=== PATIENT | female | born 1990 | race Asian ===

== ENCOUNTER 2017-08-27 08:10 | Inpatient (IN) | payer SELFPAY ==
[~2017-08-27] VITALS: Ht 154 cm; Wt 47.6 kg
[2017-08-27] MEDS ORDERED: TERBUTALINE 1 MG/ML VIAL SUBQ SCH (08:50)
[2017-08-27] MEDS ORDERED: AMPICILLIN 2,000 MG VIAL ONE ×4 (08:54→20:35)
[2017-08-27] MEDS ORDERED: PREN-380 PO (08:54)
[2017-08-27] MEDS ORDERED: BETAMETH ACET/BETAMETH NA PH 30 MG/5 ML VIAL IM ONE ×2 (08:54→20:35)
[2017-08-27] MEDS ORDERED: TERBUTALINE 1 MG/ML VIAL SUBQ ONE (08:55)
[2017-08-27] MEDS: BETAMETH ACET/BETAMETH NA PH 30 MG/5 ML VIAL IM SCH ×2 (09:12→21:40)
[2017-08-27] MEDS: LACTATED RINGERS 1,000 ML IV SCH ×2 (09:13→17:24)
[2017-08-27] MEDS: AMPICILLIN 2,000 MG in NACL 0.9% 100 ML IV SCH ×3 (09:15→20:55)
[2017-08-27] MEDS ORDERED: NIFEdipine 10 MG CAPLF PO SCH (09:50)
[2017-08-27] MEDS ORDERED: NIFEdipine 10 MG CAPLF ONE ×2 (09:52→10:13)
[2017-08-27 10:30] VITALS: BP 137/103
[2017-08-27] MEDS ORDERED: MAG SULF 2000 MG/WATER PREMIX 100 ML IV SCH (10:48)
[2017-08-27 11:14] LABS: HEMATOCRIT 45.8 % (36-48); MEAN CORPUSCULAR HEMOGLOBIN 29 pg (27-31); MEAN CORPUSCULAR HGB CONC 33 g/dL (33-37); MEAN CORPUSCULAR VOLUME 89 fL (80-94); PLATELET COUNT (AUTO) 157 K/uL (140-450); RED BLOOD CELL COUNT(AUTO) 5.15 MIL/uL (4.20-5.40); RED CELL DISTRIBUTION WIDTH 14.6 % (11.6-13.7); WHITE BLOOD COUNT (AUTO) 20.7 K/uL (4.8-10.8)
[2017-08-27 11:14] LABS: APPEARANCE,URINE CLEAR (CLEAR); BILIRUBIN,URINE 2+ (NEGATIVE); BLOOD, URINE 3+ (NEGATIVE); COLOR,URINE YELLOW (YELLOW); LEUKOCYTE ESTERASE ,URINE NEGATIVE (NEGATIVE); NITRITE, URINE NEGATIVE (NEGATIVE); UGLUCOSE NEGATIVE (NEGATIVE)
[2017-08-27 11:43] LABS: LYMPHOCYTES % (MANUAL) 11 % (20-46); MONOCYTES % (MANUAL) 3 % (5-12)
[2017-08-27 11:51] LABS: RBC,URINE 3-10 (FEW) /HPF (0-5); WBC,URINE 0-5 (RARE) /HPF (0-5)
[2017-08-27 11:52] LABS: URINE AMORPHOUS URATE 1+ /HPF (None Seen)
[2017-08-27 11:56] LABS: ANION GAP 25.1 (8-16); CREATININE 1.6 mg/dL (0.6-1.3); POTASSIUM 4.1 mmol/L (3.5-5.1)
[2017-08-27 11:58] LABS: ALBUMIN 2.5 g/dL (3.4-5.0); TOTAL BILIRUBIN 8.3 mg/dL (0.0-1.0)
[2017-08-27] MEDS ORDERED: MAG SULF 20 GM/H2O PREMIX DRIP 500 ML IV ONE (12:04)
[2017-08-27] MEDS ORDERED: MAG SULF 2000 MG/WATER PREMIX 50 ML IV ONE (12:05)
[2017-08-27] MEDS ORDERED: MAG SULF 20 GM/H2O PREMIX DRIP 500 ML IV SCH (12:10)
[2017-08-27] MEDS ORDERED: ceFAZolin 2,000 MG in NACL 0.9% 100 ML IV ONE (12:55)
[2017-08-28] MEDS ORDERED: AMPICILLIN 2,000 MG VIAL ONE (02:28)
[2017-08-28] MEDS: LACTATED RINGERS 1,000 ML IV SCH ×2 (02:35→05:05)
[2017-08-28] MEDS: AMPICILLIN 2,000 MG in NACL 0.9% 100 ML IV SCH (02:35)
[2017-08-28] MEDS ORDERED: SEVOFLURANE 250 ML BTL INH ONE (07:30)
[2017-08-28] MEDS ORDERED: ONDANSETRON 4 MG/2 ML VIAL IVP ONE ×2 (07:30→13:38)
[2017-08-28] MEDS ORDERED: DEXAMETHASONE 4 MG/ML VIAL IVP ONE (07:30)
[2017-08-28] MEDS ORDERED: PROPOFOL 200 MG/20 ML VIAL IV ONE (07:30)
[2017-08-28] MEDS ORDERED: SIMETHICONE 80 MG TAB.CHEW PO PRN (07:40)
[2017-08-28] MEDS ORDERED: TRIMETHOBENZAMIDE 200 MG/2 ML SYR IM PRN (07:40)
[2017-08-28] MEDS ORDERED: MEASLES, MUMPS, AND RUBELLA 1 VIAL SQVAC PRN (07:40)
[2017-08-28] MEDS ORDERED: TEMAZEPAM 15 MG CAP PO PRN (07:40)
[2017-08-28] MEDS ORDERED: oxyCODONE/APAP 5/325 MG 1 TAB TAB PO PRN (07:40)
[2017-08-28] MEDS ORDERED: METHYLERGONOVINE 0.2 MG/ML AMP IM PRN (07:40)
[2017-08-28] MEDS ORDERED: TRIAMCINOLONE 40 MG/ML 5ML VIAL ONE (08:12)
[2017-08-28] MEDS ORDERED: OXYTOCIN 10 UNITS/ML VIAL ONE (08:12)
[2017-08-28] MEDS ORDERED: CITRIC ACID/SODIUM CITRATE 30 ML UDC PO SCH (08:39)
[2017-08-28] MEDS ORDERED: CITRIC ACID/SODIUM CITRATE 30 ML UDC ONE (08:43)
[2017-08-28] MEDS ORDERED: fentaNYL 0.05 MG/ML VIAL ONE (08:53)
[2017-08-28] MEDS ORDERED: MIDAZOLAM 2 MG/2 ML VIAL ONE (08:53)
[2017-08-28] MEDS ORDERED: KETAMINE 500 MG/5 ML VIAL ONE (08:54)
[2017-08-28] MEDS ORDERED: MORPHINE PRES FREE 10 MG/10 ML AMP IV ONE (08:54)
--- NOTE | 2017-08-28 09:01 | NUR ---
PATIENT HAS BEEN SCREENED AND CATEGORIZED LOW NUTRITION RISK. PATIENT WILL BE SEEN WITHIN 7 DAYS OF ADMISSION. 09/02/[address]
[2017-08-28] MEDS ORDERED: ONDANSETRON 4 MG/2 ML VIAL IVP PRN (09:30)
[2017-08-28] MEDS ORDERED: diphenhydrAMINE 50 MG/ML VIAL IVP PRN (09:30)
[2017-08-28] MEDS ORDERED: ePHEDrine 50 MG/ML VIAL IV ONE (13:38)
[2017-08-28] MEDS ORDERED: OXYTOCIN 10 UNITS/ML VIAL IM ONE (13:38)
[2017-08-28] MEDS: OXYTOCIN 20 UNITS in LACTATED RINGERS 1,000 ML IV SCH ×2 (14:50→19:05)
[2017-08-28] MEDS: DOCUSATE SOD/SENNA 50/8.6 MG 1 TAB PO SCH (21:21)
[2017-08-28] MEDS ORDERED: guaiFENesin 20 MG/ML UDC PO PRN (21:40)
[2017-08-29] MEDS: KETOROLAC 30 MG/ML VIAL IVP PRN ×2 (01:12→06:59)
[2017-08-29] MEDS ORDERED: OXYTOCIN 10 UNITS/ML VIAL ONE (03:15)
[2017-08-29 06:21] LABS: HEMOGLOBIN 9.6 g/dL (12.0-16.0); MEAN CORPUSCULAR HEMOGLOBIN 30 pg (27-31); MEAN CORPUSCULAR HGB CONC 34 g/dL (33-37); MEAN CORPUSCULAR VOLUME 88 fL (80-94); PLATELET COUNT (AUTO) 123 K/uL (140-450); RED BLOOD CELL COUNT(AUTO) 3.18 MIL/uL (4.20-5.40); RED CELL DISTRIBUTION WIDTH 15.4 % (11.6-13.7); WHITE BLOOD COUNT (AUTO) 29.1 K/uL (4.8-10.8)
[2017-08-29 06:47] LABS: LYMPHOCYTES % (MANUAL) 15 % (20-46); MONOCYTES % (MANUAL) 7 % (5-12)
[2017-08-29] MEDS: DOCUSATE SOD/SENNA 50/8.6 MG 1 TAB PO SCH (20:54)
[2017-08-30] MEDS ORDERED: LABETALOL 100 MG TAB PO SCH (12:00)
[2017-08-30] MEDS: LABETALOL 100 MG TAB PO SCH (21:33)
[2017-08-30] MEDS: IBUPROFEN 800 MG TAB PO PRN (21:50)
[2017-08-30] MEDS: DOCUSATE SOD/SENNA 50/8.6 MG 1 TAB PO SCH (21:54)
[2017-08-31] MEDS: LABETALOL 100 MG TAB PO SCH (08:33)
[2017-08-31] MEDS: IBUPROFEN 800 MG TAB PO PRN (08:34)
[2017-08-31] MEDS ORDERED: FUROSEMIDE 20 MG TAB PO SCH ×2 (09:25→14:00)
[2017-08-31 13:44] LABS: CARBON DIOXIDE 23.3 mmol/L (21-32); POTASSIUM 5.3 mmol/L (3.5-5.1)
[2017-08-31 13:50] LABS: ALBUMIN 1.5 g/dL (3.4-5.0)
[2017-08-31 13:55] LABS: HEMATOCRIT 27.9 % (36-48); HEMOGLOBIN 9.7 g/dL (12.0-16.0); MEAN CORPUSCULAR HEMOGLOBIN 31 pg (27-31); MEAN CORPUSCULAR HGB CONC 35 g/dL (33-37); MEAN CORPUSCULAR VOLUME 88 fL (80-94); PLATELET COUNT (AUTO) 91 K/uL (140-450); RED BLOOD CELL COUNT(AUTO) 3.18 MIL/uL (4.20-5.40); RED CELL DISTRIBUTION WIDTH 16.4 % (11.6-13.7); WHITE BLOOD COUNT (AUTO) 19.6 K/uL (4.8-10.8)
[2017-08-31 14:15] LABS: TOTAL BILIRUBIN 9.6 mg/dL (0.0-1.0)
[2017-08-31 14:37] LABS: CORRECTED WHITE BLOOD COUNT 18.5 K/uL (4.5-11.0); LYMPHOCYTES % (MANUAL) 13 % (20-46); MONOCYTES % (MANUAL) 8 % (5-12)
[2017-08-31] MEDS ORDERED: AMPICILLIN 2,000 MG VIAL ONE ×2 (15:57→20:46)
[2017-08-31] MEDS ORDERED: AMPICILLIN 2,000 MG in NACL 0.9% 100 ML IV SCH (16:00)
[2017-08-31] MEDS: HYDROcodone/APAP 5/325 MG 1 TAB TAB PO PRN (19:08)
[2017-08-31] MEDS ORDERED: CLINDAMYCIN 900 MG/6 ML VIAL IV ONE (20:47)
[2017-08-31] MEDS ORDERED: CLINDAMYCIN 900 MG in DEXTROSE 5% 100 ML IV SCH (21:00)
[2017-09-01] MEDS: HYDROcodone/APAP 5/325 MG 1 TAB TAB PO PRN (08:44)
[2017-09-01] MEDS: LABETALOL 100 MG TAB PO SCH (09:24)
[2017-09-01 10:12] LABS: HEMATOCRIT 37.4 % (36-48); HEMOGLOBIN 13.1 g/dL (12.0-16.0); MEAN CORPUSCULAR HEMOGLOBIN 31 pg (27-31); MEAN CORPUSCULAR HGB CONC 35 g/dL (33-37); MEAN CORPUSCULAR VOLUME 88 fL (80-94); PLATELET COUNT (AUTO) 80 K/uL (140-450); RED BLOOD CELL COUNT(AUTO) 4.26 MIL/uL (4.20-5.40); RED CELL DISTRIBUTION WIDTH 15.3 % (11.6-13.7); WHITE BLOOD COUNT (AUTO) 20.7 K/uL (4.8-10.8)
[2017-09-01 10:37] LABS: BASOPHILS % (MANUAL) 0 % (0-2); CORRECTED WHITE BLOOD COUNT 19.2 K/uL (4.5-11.0); EOSINOPHILS % (MANUAL) 0 % (0-4); LYMPHOCYTES % (MANUAL) 14 % (20-46); MONOCYTES % (MANUAL) 12 % (5-12)
[2017-09-01 10:56] LABS: ANION GAP 10.7 (8-16); POTASSIUM 4.7 mmol/L (3.5-5.1)
[2017-09-01 10:58] LABS: ALBUMIN 1.5 g/dL (3.4-5.0); TOTAL BILIRUBIN 9.7 mg/dL (0.0-1.0)
== END 2017-09-01 16:40 | disposition home or self-care (01) | DRG 766 ==
LOC: MLD 08:10 → MFCC 08-28 10:47
PROVIDERS: ADMIT Obstetrics & Gynecology; ATTEND Obstetrics & Gynecology
PROC: 10907ZC Drainage of Amniotic Fluid, Therapeutic from Products of Conception, Via Natural or Artificial Opening (ICD-10-PCS; 2017-08-28)
PROC: 30233N1 Transfusion of Nonautologous Red Blood Cells into Peripheral Vein, Percutaneous Approach (ICD-10-PCS; 2017-08-28)
PROC: 10D00Z1 Extraction of Products of Conception, Low, Open Approach (ICD-10-PCS; principal; 2017-08-28 08:45)
DX: O60.14X0 Preterm labor third trimester with preterm delivery third trimester, not applicable or unspecified (principal); O67.9 Intrapartum hemorrhage, unspecified; Z37.0 Single live birth; Z3A.35 35 weeks gestation of pregnancy; O76 Abnormality in fetal heart rate and rhythm complicating labor and delivery
CPT/HCPCS: 36415; 51702; 76819; 80053; 81001; 83735; 85025; 86886; 86900; 86901; 86920; J0290; J0690; J0702; J1100; J1885; J2250; J2270; J2405; J2590; J2704; J3010; J3105; J3301; J3475; J3490; J7030; J7060; J7120; P9016; Q0092

== ENCOUNTER 2017-09-02 01:13 | Inpatient (IN) | payer SELFPAY ==
[~2017-09-02] VITALS: Ht 162.6 cm; Wt 44.9 kg
[~2017-09-02 01:13] MED LIST: PREN-380 PO
--- NOTE | 2017-09-02 01:13 | NUR ---
TO ER BED 10
[2017-09-02 01:15] VITALS: BP 147/86
--- NOTE | 2017-09-02 01:15 | NUR ---
26Y F BIB FAMILY C/O ABDOMEN SX. WOUND BLEEDING WITH CHEST PAIN. PT. S/P C/S ON 08/28/17. PT AAOX4. BREATHING UNLABORED AND EVEN. PT BEING EVALUATED BY ER MD DR MORALES AT BEDSIDE. PRESSURE DRESSING APPLIED AND BLEEDING CONTROLLED. PT VSS.
--- NOTE | 2017-09-02 01:15 | NUR ---
PT HAS ACTIVE BLEEDING FROM CSECTION INCISION, NO VAGINAL BLEEDING NOTED AT THIS TIME. PRESSURE BANDAGE APPLIED. VSS AT THIS TIME.
--- NOTE | 2017-09-02 01:15 | NUR ---
Patient being evaluated by physician at bedside.
--- NOTE | 2017-09-02 01:16 | NUR ---
PT CONNECTED TO MONITOR. VSS.
[2017-09-02] MEDS ORDERED: NACL 0.9% 1,000 ML IV ONE ×2 (01:20→02:20)
--- NOTE | 2017-09-02 01:20 | NUR ---
BLOOD DRAWN AT BEDSIDE AND GIVEN TO PHLEB BERNADETTE
[2017-09-02] MEDS ORDERED: LIDOCAINE/EPI 2% 1:100000 20 ML VIAL INJ ONE (01:25)
--- NOTE | 2017-09-02 01:30 | NUR ---
LIDOCAINE/EPI 2% PULLED FROM PYXIS AND PLACED BY BEDSIDE FOR ER MD DR MORALES TO ADMINISTER.
[2017-09-02 01:31] LABS: MEAN CORPUSCULAR HEMOGLOBIN 30 pg (27-31); MEAN CORPUSCULAR HGB CONC 33 g/dL (33-37); MEAN CORPUSCULAR VOLUME 90 fL (80-94); PLATELET COUNT (AUTO) 104 K/uL (140-450); RED BLOOD CELL COUNT(AUTO) 4.69 MIL/uL (4.20-5.40)
[2017-09-02 01:41] LABS: WHITE BLOOD COUNT (AUTO) 26.4 K/uL (4.8-10.8)
[2017-09-02 01:43] LABS: CORRECTED WHITE BLOOD COUNT 24.7 K/uL (4.5-11.0)
--- NOTE | 2017-09-02 01:45 | NUR ---
PT LEFT TO CT ACCOMPANIED BY PAINT BRUSH MAKER AND TOMMY, PT CONNECTE TO MONITOR
[2017-09-02 01:48] LABS: LYMPHOCYTES % (MANUAL) 10 % (20-46); MONOCYTES % (MANUAL) 2 % (5-12)
[2017-09-02 01:55] LABS: CARBON DIOXIDE 26.6 mmol/L (21-32); POTASSIUM 4.6 mmol/L (3.5-5.1)
[2017-09-02 01:59] LABS: PROTHROMBIN TIME 12.5 secs (10.8-13.4)
[2017-09-02 02:00] LABS: TOTAL BILIRUBIN 8.5 mg/dL (0.0-1.0)
--- NOTE | 2017-09-02 02:03 | NUR ---
PT RETURN FROM CT.
[2017-09-02 02:04] LABS: ALBUMIN 1.7 g/dL (3.4-5.0)
[2017-09-02 02:08] LABS: D-DIMER 2960 ng/ml (0-400)
--- NOTE | 2017-09-02 02:15 | NUR ---
SURGICAL INCISION FROM WOUNDS ARE APPROXIMATED, NO EVISCERATION OR DEHISANCE NOTED, ACTIVE BLEEDING FROM CSECTION SITE. BRUISING AROUND INCISION SITE AND LOWER ABD.
--- NOTE | 2017-09-02 02:20 | NUR ---
INITIAL PRESSURE DRESSING SATURATED, DRESSING CHANGED, ABD PADS AND GAUZE APPLIED W/ PRESSURE. WILL CONTINUE TO MONITOR.
--- NOTE | 2017-09-02 03:00 | NUR ---
DRESSING CHANGED AFTER SUTURE BY DR. MORALES, ABD PADS APPLIED W/ ABD BINDER.
[2017-09-02] MEDS ORDERED: MORPHINE SULFATE 4 MG/ML SYR IVP ONE (03:05)
[2017-09-02] MEDS ORDERED: ONDANSETRON 4 MG/2 ML VIAL IVP ONE (03:05)
--- NOTE | 2017-09-02 03:16 | NUR ---
PT AWAKE IN BED, WILL CONTINUE TO MONITOR, VSS AT THIS TIME.
--- NOTE | 2017-09-02 03:40 | NUR ---
RECEIVED PATIENT FROM ER. PATIENT A&OX4. PATIENT STATES PAIN 10/10, PATIENT MEDICATED PRIOR TO TRANSFER TO UNIT. WILL RE ASSESS. IV SITE ON LEFT HAND PATENT AND INTACT, IV SITE ON RIGHT A/C PATENT AND INTACT. PATIENT HAS ABDOMINAL BINDER IN PLACE, TWO [address], DRESSING HAS MINIMAL DRAINAGE. PATIENT HAS SCANT AMOUNT OF LOCHIA NOTED. AT BEDSIDE. NO SIGNS OR SYMPTOMS OF ACUTE DISTRESS NOTED. PATIENT AND ORIENTED TO UNIT. SAFETY MEASURES ENSURED. CALL LIGHT WITHIN REACH. WILL CONTINUE TO MONITOR.
--- NOTE | 2017-09-02 03:45 | NUR ---
Patient will be admitted to care of DR Rolo DURAN. Admited to TELE. Will go to room 112-B. Belongings list completed. Report to SHIN.
[2017-09-02 04:00] VITALS: BP 130/70
[2017-09-02] MEDS ORDERED: MORPHINE SULFATE 4 MG/ML SYR IVP PRN (04:15)
--- NOTE | 2017-09-02 06:28 | NUR ---
DR DURAN IN TO SEE PATIENT
--- NOTE | 2017-09-02 07:20 | NUR ---
RECEIVED PATIENT REPORT AT BEDSIDE FROM NIGHTSHIFT NURSE. PATIENT IS A MANDARIN SPEAKER BUT HAS HER AT BEDSIDE. IS ABLE TO HELP TRANSLATE. PATIENT IS DROWSY AT THIS TIME. RESPIRATIONS ARE EVEN AND UNLABORED. NO SIGNS OF RESPIRATORY DISTRESS AND DEPRESSION AT THIS TIME. PATIENT ABDOMINAL DRESSING IS IN TACT AND DRY. PATIENT HAS NS 0.9 RUNNING AT 100 ML/HR ON HER RIGHT AC. NO COMPLAINTS OF PAIN AT THIS TIME. UPDATED PATIENT'S BOARDS AND INSTRUCTED AND PATIENT TO CALL IF THEY NEED ANYTHING.
--- NOTE | 2017-09-02 07:34 | NUR ---
ENDORSED PLAN OF CARE TO AM RN. PATIENT IN STABLE CONDITION
[2017-09-02] MEDS ORDERED: AMPICILLIN 2,000 MG in NACL 0.9% 100 ML IV SCH (08:00)
--- NOTE | 2017-09-02 09:07 | NUR ---
PATIENT HAS BEEN SCREENED AND CATEGORIZED HIGH NUTRITION RISK. PATIENT WILL BE SEEN WITHIN 1-2 DAYS OF ADMISSION. 09/01/17-09/02/[address]
[2017-09-02 09:11] VITALS: BP 122/72
[2017-09-02] MEDS: CLINDAMYCIN 900 MG in DEXTROSE 5% 50 ML IV SCH ×2 (09:19→15:58)
[2017-09-02] MEDS: DOCUSATE SODIUM 100 MG GELCAP PO SCH ×2 (09:19→21:02)
--- NOTE | 2017-09-02 09:25 | NUR ---
PATIENT IS ASLEEP BUT AROUSABLE. IS STILL AT BEDSIDE. WILL CONTINUE TO MONITOR PATIENT.
[2017-09-02 10:54] LABS: HEMATOCRIT 29.7 % (36-48); HEMOGLOBIN 10.1 g/dL (12.0-16.0); MEAN CORPUSCULAR HEMOGLOBIN 30 pg (27-31); MEAN CORPUSCULAR HGB CONC 34 g/dL (33-37); MEAN CORPUSCULAR VOLUME 87 fL (80-94); PLATELET COUNT (AUTO) 109 K/uL (140-450); RED CELL DISTRIBUTION WIDTH 16.1 % (11.6-13.7); WHITE BLOOD COUNT (AUTO) 23.1 K/uL (4.8-10.8)
[2017-09-02 11:04] LABS: LYMPHOCYTES % (MANUAL) 11 % (20-46); MONOCYTES % (MANUAL) 3 % (5-12)
[2017-09-02 12:00] VITALS: BP 122/78
--- NOTE | 2017-09-02 12:50 | NUR ---
DR DURAN HERE TO CHECK ON PT. PT IS RESTING WITH SPOUSE AT BEDSIDE. NOTIFIED DR. DURAN OF THE HIGH WBC, NO AMPICILLIN PER PHARMACY, AND ASKED IF HE WANTED DR. SILVA CONSULT. PER MD, NOT NECESSARY FOR DR. SILVA CONSULT. CONTINUE THE ABX. Addendum: 09/02/17 at 1804 by Becca Gardner RN WHEN ASKED ABOUT DRESSING CHANGE. MD STATED NOT TO CHANGE DRESSING. IT IS DRY AND INTACT.
[2017-09-02] MEDS: GENTAMICIN 80 MG in DEXTROSE 5% 100 ML IV SCH ×2 (13:42→21:02)
[2017-09-02] MEDS ORDERED: SODIUM PHOSPHATE 118 ML ENEM RC PRN (15:50)
[2017-09-02 16:00] VITALS: BP 123/81
--- NOTE | 2017-09-02 16:39 | NUR ---
LATE DOCUMENTATION: ADMINISTERED ENEMA. PT TOLERATED WELL. PT IN L LATERAL. HELD SOLUTION FOR 8 MIN. RELEASED SOLUTION. NO BM. CLEANED PT UP. PT IS CLEAN AND DRY. WILL CONTINUE TO MONITOR PT.
--- NOTE | 2017-09-02 18:08 | NUR ---
ATE DINNER WELL. LOOKING BETTER. PER PT, FEELING BETTER. THEN ALL OF THE SUDDEN, FEELING DIZZY AND SICK. CHECKED BP. 133/80. STABLE. PT RESTING. WILL CONTINUE TO MONITOR PT.
--- NOTE | 2017-09-02 19:15 | NUR ---
REPORT GIVEN TO NIGHTSHIFT NURSE AT BEDSIDE. PATIENT IS AWAKE AND USING HER PHONE WITH AT BEDSIDE. PATIENT COMPLAINS OF NO PAIN AT THIS TIME. PATIENT SHOWS NO SIGNS OF RESPIRATORY DISTRESS OR DEPRESSION. NO BLEEDING NOTED AT ABDOMINAL SITE. CALL LIGHT WITHIN REACH OF PATIENT. ENDORSED CARE TO NIGHTSHIFT NURSE. PATIENT IS IN STABLE CONDITION.
--- NOTE | 2017-09-02 19:16 | NUR ---
RECEIVED REPORT FROM DAY SHIFT NURSE. PT IN BED TALKING TO AT BEDSIDE. NO C/O PAIN. IV TO RIGHT AC #18G WITH NS AT 100 ML/HR, INFUSING WELL. IV TO LEFT HAND #20G, SALINE LOCK. ABDOMINAL DRESSING DRY AND INTACT. DISCUDDED PLAN OF CARE, PT AND VERBALIZED UNDERSTANDING. CALL LIGHT WITHIN REACH. WILL CONTINUE TO MONITOR,
--- NOTE | 2017-09-02 20:00 | NUR ---
IV ANTIBIOTICS DONE. DISCHARGE PACKET GIVEN TO PT. IV CANNULA REMOVED, TIP INTACT, NO BLEEDING TO IV SITE NOTED. ARM BAND REMOVED. PT AND WAITING FOR THEIR RIDE. PT IN STABLE CONDITION. Addendum: 09/02/17 at 2338 by Tanesha Shrestha RN ERROR
--- NOTE | 2017-09-02 20:30 | NUR ---
DR. DURAN CAME IN TO SEE PT. ORDERED TO D/C PATIENT BARRY AFTER FINISHING ANTIBIOTIC GARAMYCIN 80 MG IVPB.
[2017-09-02 20:40] VITALS: BP 132/87
--- NOTE | 2017-09-02 21:10 | NUR ---
DUE MEDS GIVEN. PT TOLERATED WELL. WILL CONTINUE TO MONITOR.
--- NOTE | 2017-09-02 22:00 | NUR ---
IV ANTIBIOTICS DONE. DISCHARGE PACKET GIVEN TO PT. IV CANNULA REMOVED, TIP INTACT, NO BLEEDING TO IV SITE NOTED. ARM BAND REMOVED. PT AND WAITING FOR THEIR RIDE. PT IN STABLE CONDITION
--- NOTE | 2017-09-02 23:00 | NUR ---
PT WHEELED OUT TO FRONT LOBBY BY ENTRY LEVEL SALES REPRESENTATIVE. PT HAS ALL HER PERSONAL BELONGINGS. PT ACCOMPANIED BY AND FRIEND. PT IN STABLE CONDITION.
== END 2017-09-02 23:00 | disposition home or self-care (01) | DRG 776 ==
LOC: MED 01:13 → MTU 03:04
PROVIDERS: ADMIT Obstetrics & Gynecology; ATTEND Obstetrics & Gynecology
DX: O90.2 Hematoma of obstetric wound (principal); O14.25 HELLP syndrome, complicating the puerperium; O14.95 Unspecified pre-eclampsia, complicating the puerperium
CPT/HCPCS: 36415; 36600; 80053; 82803; 84484; 85025; 85379; 85384; 85610; 85730; 87081; 93005; 96361; 96374; 96375; 99291; J1580; J2001; J2270; J2405; J3490; J7030; J7060; Q9967